=== PATIENT | female | born 1980 | race Caucasian/White ===

== ENCOUNTER 2020-05-21 09:33 | Day surgery (SDC) | payer SELFPAY ==
[2020-05-13 09:31] VITALS: BMI 26.0
--- OUTSIDE RECORDS SUMMARY | 2020-05-21 09:38 | XMS ---
:1980 [facility] Care Team Providers Name Role Phone MD VALENTE GALLAGHER Unavailable UnavailMD BAHMAN Snow Unavailable MD BAHMAN Reed Unavailable MD BAHMAN Reed Unavailable Unavailable Katie Unavailable Unavailable Katie Nguyen Unavailable Katie Ma MD Unavailable Unavailable MD BAHMAN WILSON Unavailable Unavailable MD BAHMAN WILSON Unavailable MD BAHMAN Reed Unavailable Unavailable Re-disclosure Warning The records that you are about to access may contain information from federally- assisted alcohol or drug abuse programs. If such information is present, then the following federally mandated warning applies: This information has been disclosed to you from records protected by federal confidentiality rules (42 CFR part 2). The federal rules prohibit you from making any further disclosure of this information unless further disclosure is expressly permitted by the written consent of the person to whom it pertains or as otherwise permitted by 42 CFR part 2. A general authorization for the release of medical or other information is NOT sufficient for this purpose. The Federal rules restrict any use of the information to criminally investigate or prosecute any alcohol or drug abuse patient.The records that you are about to access may contain highly sensitive health information, the redisclosure of which is protected by Article 27-F of the [place] State Public Health law. If you continue you may haveaccess to information: Regarding HIV / AIDS; Provided by facilities licensed or operated by the [facility] Office of Mental Health; or Provided by the [facility] Office for People With Developmental Disabilities. If such information is present, then the following [facility] mandated warning applies: This information has been disclosed to you from confidential records which are protected by state law. State law prohibits you from making any further disclosure of this information without the specific written consent of the person to whom it pertains, or as otherwise permitted by law. Any unauthorized further disclosure in violation of state law may result in a fine or fdc sentence or both. A general authorization for the release of medical or other information is NOT sufficient authorization for further disclosure. Encounters Encounter Providers Location Date Indications Data Source(s ) Outpatient Attender: Leonarda 05/06/2020 [facility] Francesca WILLS 08:34:00 AM Hospital EDT [facility] Outpatient Attender: Leonarda 05/03/2020 07:40:00 [facility] WILLS AM EDT P Attender: MD JARED DYER XR[facility]PAT [facility] KATIEAttender: Annie Cruzender: MD JARED Cruzender: MD JARED Cruzender: Bahman Cruzender: MD JARED Cruzender: MD VALENTE MORGAN FNPReferrer: MD JARED Garcia Attender: MD JARED DYER XR-AMS 04/08/2020 10[facility]13:[facility] JARED WILSONAttender: Annie Lopez: MD JARED Lopez: MD JARED Lopez: MD VALENTE MORGAN FNPAttender: Bahman Lopez: MD JARED WILSONReferrer: MD JARED WILSON Insurance Providers Payer name Policy type Policy ID Covered Covered republican's Policy P cheryl / Coverage republican ID relationship to Perez Inf ormation type perez [employer] [id number] SP [id number] HEALTHCARE HMO CIGNA [id number] SP [id number] HEALTHCARE HMO SELF PAY SP INSURANCE CIG[employer] [id number] PT [id number] HEALTHCARE IND Problems, Conditions, and Diagnoses Code Display Name Description Problem Type Effective Dates Data Source(s) R94.5 Abnormal results R94.5 Diagnosis 05/06/[address] [facility] of liver function 08:34:00 AM EDT Ho spital studies Results ID Date Data Source [id number] 05/18/2020 12:59:00 PM EDT [facility] Name Value Range Interpretation Description Data Sup porting Code Source(s) Document(s ) SARS [facility] coronavirus 2 RNA This lab was ordered by COLLEEN garrett [facility] and reported by [facility]. ID Date Data Source [id number] 05/13/2020 10:55:00 AM EDT [facility] Name Value Range Interpretation Description Data Sup porting Code Source(s) Document(s ) SARS [facility] coronavirus 2 RNA This lab was ordered by COLLEEN garrett [facility] and reported by [facility]. ID Date Data Source [id number] 02/20/2020 09:30:00 AM EDT [facility] Name Value Range Interpretation Description Data Sup porting Code Source(s) Document(s ) SARS [facility] coronavirus 2 RNA [facility] by [facility]. ID Date Data Source [id number] 11/03/2019 12:00:00 AM EDT [facility] Name Value Range Interpretation Description Data Sup porting Code Source(s) Document(s ) SARS [facility] CORONAVIRUS 2 RNA This lab was ordered by [employer] and reported by [facility]. Procedure
[2020-05-21] MEDS ORDERED: BUPIVACAINE LIPOSOME/PF (EXPAREL) 266 MG/20 ML VIAL ONE (11:19)
[2020-05-21] MEDS ORDERED: fentaNYL CITRATE 250 MCG/5 ML VIAL ONE (11:29)
[2020-05-21] MEDS ORDERED: MIDAZOLAM HCL 2 MG/2 ML SINGLE DOSE VIAL ONE (11:29)
[2020-05-21] MEDS ORDERED: PROPOFOL 20 ML ONE ×4 (11:29)
[2020-05-21] MEDS ORDERED: ROCURONIUM BROMIDE 50 MG/5 ML SYRINGE ONE ×2 (11:29→12:39)
[2020-05-21] MEDS ORDERED: SCOPOLAMINE HYDROBROMIDE 1 PATCH PATCH.TD72 ONE (11:42)
[2020-05-21] MEDS ORDERED: CLINDAMYCIN PHOSPHATE 600 MG/4 ML VIAL ONE ×2 (12:01→12:06)
[2020-05-21] MEDS ORDERED: KETOROLAC TROMETHAMINE 30 MG/1 ML VIAL ONE (12:19)
[2020-05-21] MEDS ORDERED: LIDOCAINE HCL/PF 2% SDV 5ML VIAL ONE (12:19)
[2020-05-21] MEDS ORDERED: LIDOCAINE HCL 2% JELLY (5 ML/TUBE) ONE (12:19)
[2020-05-21] MEDS ORDERED: DEXAMETHASONE SOD PHOSPHATE 4 MG/1 ML VIAL ONE (12:19)
[2020-05-21] MEDS ORDERED: ONDANSETRON 4 MG/2 ML VIAL ONE (12:19)
[2020-05-21] MEDS ORDERED: SODIUM CHLORIDE 0.9% P/F 10 ML VIAL IJ ONE (12:23)
[2020-05-21] MEDS ORDERED: BUPIVACAINE HCL/PF 0.5% (5MG/ML) 10 ML VIAL ONE (12:23)
[2020-05-21] MEDS ORDERED: EPHEDRINE SULFATE/0.9% NACL/PF 50 MG/10 ML SYRINGE NR ONE (12:44)
[2020-05-21] MEDS ORDERED: EPINEPHrine/PF 1 MG/1 ML (1:1,000) AMPULE ONE (13:05)
[2020-05-21] MEDS ORDERED: LIDOCAINE HCL 1%, 10 MG/ML (20ML VIAL) ONE (13:05)
[2020-05-21] MEDS ORDERED: GLYCOPYRROLATE 0.2 MG/1 ML VIAL ONE (14:39)
[2020-05-21] MEDS ORDERED: NEOSTIGMINE METHYLSULFATE 0.5 MG/ML - 10 ML MDV ONE (14:40)
[2020-05-21] MEDS ORDERED: ACETAMINOPHEN 325 MG TABLET (FP) PO PRN (15:04)
[2020-05-21] MEDS ORDERED: ALPRAZolam 0.25 MG TABLET PO PRN (15:09)
[2020-05-21] MEDS ORDERED: ONDANSETRON 4 MG/2 ML VIAL IVPUSH PRN (15:09)
[2020-05-21] MEDS ORDERED: PANTOPRAZOLE 40 MG TABLET PO PRN (15:09)
[2020-05-21] MEDS ORDERED: PROMETHAZINE HCL 25 MG/1 ML VIAL IVPUSH PRN (15:09)
[2020-05-21] MEDS ORDERED: oxyCODONE HCL 5 MG TABLET PO PRN (15:09)
[2020-05-21] MEDS: ONDANSETRON 4 MG/2 ML VIAL IVPUSH PRN ×3 (15:10→22:21)
[2020-05-21] MEDS ORDERED: LACTATED RINGERS SOLUTION 1,000 ML IV SCH (15:15)
[2020-05-21] MEDS ORDERED: CLINDAMYCIN IVPB 300 MG in DEXTROSE 5%-WATER - 48 ML IVPB SCH (18:00)
[2020-05-21] MEDS: oxyCODONE HCL 5 MG TABLET PO PRN ×2 (18:51→23:27)
[2020-05-21] MEDS: FLUTICASONE PROP 0.05% 16 GM NASAL SPRAY NS SCH (21:40)
[2020-05-21] MEDS ORDERED: PATIENT'S OWN MEDICATION (NON-FORMULARY) (Azelastine Hcl [Azelastine Hcl] 137 MCG) NS SCH (22:00)
[2020-05-21] MEDS ORDERED: ESCITALOPRAM OXALATE 10 MG TABLET PO SCH (22:00)
[2020-05-21] MEDS ORDERED: LORATADINE 10 MG TABLET PO PRN (22:00)
[2020-05-22] MEDS: CLINDAMYCIN 300 MG PREMIX IVPB 300 MG/50 ML BAG IVPB SCH ×2 (01:42→09:21)
[2020-05-22] MEDS: ACETAMINOPHEN 325 MG TABLET (FP) PO PRN ×2 (03:23→09:22)
[2020-05-22] MEDS: ONDANSETRON 4 MG/2 ML VIAL IVPUSH PRN (03:54)
[2020-05-22] MEDS: FLUTICASONE PROP 0.05% 16 GM NASAL SPRAY NS SCH (09:21)
[2020-05-22] MEDS ORDERED: KETOROLAC TROMETHAMINE 30 MG/1 ML VIAL IVPUSH PRN (09:39)
[2020-05-22] MEDS ORDERED: MULTIVITAMINS (DAILY MVI) TABLET (FP) PO SCH (10:00)
[2020-05-22] MEDS ORDERED: LACTOBACILLUS ACIDOPHILUS 1 TABLET PO SCH (10:00)
[2020-05-22] MEDS ORDERED: ENOXAPARIN NA (PORCINE) 40 MG/0.4 ML DISP.SYRIN SQ SCH (10:00)
[2020-05-22] MEDS ORDERED: PT OWN MED DRAWER 7, Y5N ONE ×2 (11:17→11:23)
--- NOTE | 2020-05-22 11:18 | PN ---
Progress Note (short form) - Note Progress Note: ANESTHESIA POSTOP 39 YO FEMALE POD#1 S/P GETA FOR ABDOMINOPLASTY AND LIPOSUCTION Patient sitting in chair. Nausea present even with aggressive treatment (including scop patch). Pain adequately controlled. VSS, Afebrile Continue current care. Encourage ambulation and IS.
--- NOTE | 2020-05-22 14:10 | OP ---
DATE OF OPERATION: 05/21/2020 ATTENDING SURGEON: Bahman Doe MD CONTENT DEVELOPMENT SPECIALIST: NARA PREOPERATIVE DIAGNOSES: Abdominal lipodystrophy, flank lipodystrophy, and lower back lipodystrophy. POSTOPERATIVE DIAGNOSES: Abdominal lipodystrophy, flank lipodystrophy, and lower back lipodystrophy. PROCEDURE: Abdominoplasty with back, flank, and cervical liposuction. DRAINS: One 15-mm round Glen drain. ANESTHESIA: General endotracheal anesthesia. ESTIMATED BLOOD LOSS: 60 mL. FLUIDS ADMINISTERED: Crystalloid solution 2.1 L. COMPLICATIONS: None. DESCRIPTION OF PROCEDURE: Patient was brought into the operating room and placed supine on the operating table. After induction of general endotracheal anesthesia, sequential compression devices were assured to be functioning appropriately and a Morejon catheter was placed. Once this was completed, an appropriate timeout was performed identifying the patient and the nature of the procedure. All operative participants to ask questions and to raise concerns indicated. The patient was then placed into the prone position on soft axillary rolls with all bony prominences padded appropriately. Prepping with topical chlorhexidine solution allowed for lipoaspiration of the back, flank, and outer axillary areas for a total of 400 mL of liposuction. The MicroAire oscillating system was utilized with tumescent infiltration prior to power assisted liposuction. The access incisions were then closed with 5-0 fast absorbing plain gut suture. Patient was then shifted back into the supine position, reprepped and draped, and a curvilinear incision was made from the left anterior superior iliac spine to the right anterior superior iliac spine below the umbilicus. A skin/soft tissue composite flap was then elevated centrally to the xiphoid process encountering an umbilical hernia which was excised and repaired with a nqtsez-im-uhegn number 1 Prolene suture. The diastasis measured 2 cm in diameter in greatest width. It was repaired from the xiphoid to the pubic symphysis with a running locking number 1 Prolene suture. With the diastasis repaired, the 15-mm round Glen drain was placed through a stab incision and secured with 3-0 nylon. Exparel anesthesia solution was injected along the linea alba and semilunaris for postoperative analgesia. Using a flap splitting technique, the redundant skin and soft tissue were excised and the anterior abdominal wall was suctioned using the MicroAire system after infiltration of tumescent solution. An additional 600 mL of pure lipoaspirate was removed. With the skin and soft tissue composite flaps elevated and dissected free and passed off the table as specimens, a layered closure was completed with interrupted and running 2-0 Vicryl for the deep Rain layer followed by interrupted 3-0 Monocryl for the deep dermal and lastly a running 4-0 Biosyn V-Loc subcuticular suture was placed. Prineo abdominal wall mesh was then applied with local adhesive painted into the interstices and allowed to dry. Abdominal binder then positioned, and the patient was extubated and transferred to the postanesthesia care unit in stable condition. BAHMAN DOE M.D. MELISSA/[id number]
[2020-05-22 14:48] VITALS: BP 102/68; PULSE 88; TEMP 98.7
--- NOTE | 2020-05-24 16:58 | PATH ---
Surgical Pathology Report Patient Name: CAMILA MARTÍNEZ Med. Rec. #: [id number] /Age/Gender: 1980 (Age: 39) / F Account: [id number] Location: [facility] Taken: 05/21/2020 Received: 05/21/2020 Reported: 05/24/2020 Physicians: Lizandro Doe Specimen(s) Received ABDOMINAL SKIN AND TISSUE Clinical History Cosmetic Final Diagnosis ABDOMINAL SKIN AND TISSUE, ABDOMINOPLASTY: SKIN AND ADIPOSE TISSUE, DESCRIBED (GROSS EXAMINATION ONLY). Electronically Signed Nan Arteaga M.D. Gross Description Received in formalin labeled "abdominal skin and tissue," is a 623 g, 15.5 x 14.5 x 4.5 cm aggregate of 2 teague, triangular, unremarkable portions of skin with underlying soft tissue. Sectioning reveals yellow, lobulated adipose tissue. No lesions are identified. No sections are submitted, gross only. /05/22/2020 saudi/05/22/2020
== END 2020-05-22 14:00 | disposition home or self-care (01) ==
LOC: FASUSAT 09:33 → FM/S 17:38 → FASUSAT 05-22 14:00
PROVIDERS: ATTEND Surgery Plastic and Reconstructive Surgery
PROC: 0J073ZZ Alteration of Back Subcutaneous Tissue and Fascia, Percutaneous Approach (ICD-10-PCS; 2020-05-21)
PROC: 0J080ZZ Alteration of Abdomen Subcutaneous Tissue and Fascia, Open Approach (ICD-10-PCS; principal; 2020-05-21 12:17)
PROC: 0J083ZZ Alteration of Abdomen Subcutaneous Tissue and Fascia, Percutaneous Approach (ICD-10-PCS; 2020-05-21 12:17)
DX: E88.1 Lipodystrophy, not elsewhere classified (principal)
CPT/HCPCS: 84703; 88300-TC; 94760